=== PATIENT | female | born 1970 | race African-American/Black ===

== ENCOUNTER 2016-12-18 14:27 | Emergency (ER) | payer SELFPAY ==
[~2016-12-18] VITALS: Ht 177.8 cm; Wt 111.6 kg
[2016-12-18] MEDS ORDERED: NKM (14:43)
--- NOTE | 2016-12-18 15:05 | Emergency Room Report ---
History of Present Illness General Chief Complaint: Skin Rash/Abscess Source: Patient Present Illness HPI Pt is a 46 year old female who presents today with complaints of rash to the left axila that began 3 days ago. She states it has been itching and she has been using hydrocortisone cream for it. She denies any new lotions, soaps, or detergents. Denies new medications or pet contact. Denies SOB. Allergies: Coded Allergies: No Known Allergies (Unverified , 12/18/16) Patient History Last Menstrual Period: Current Now: No Reviewed Nursing Documentation: PMH: Agreed, PSxH: Agreed Nursing Documentation-PMH Past Medical History: No Stated History Review of Systems Skin: Reports: rash All Other Systems: negative except mentioned in HPI Physical Exam Vital Signs Date Time Temp Pulse Resp B/P (MAP) Pulse Ox O2 Delivery O2 Flow Rate FiO2 12/18/16 14:37 99.0 85 16 143/84 98 Room Air Sp02 EP Interpretation: reviewed, normal General Appearance: no apparent distress, alert, GCS 15, non-toxic Head: normocephalic, atraumatic Eyes: bilateral eye normal inspection, bilateral eye PERRL ENT: hearing grossly normal, normal pharynx, no angioedema, normal voice Neck: full range of motion, supple/symm/no masses Respiratory: chest non-tender, lungs clear, normal breath sounds, speaking full sentences Cardiovascular #1: regular rate, rhythm, no edema Cardiovascular #2: 2+ carotid (R), 2+ carotid (L), 2+ radial (R), 2+ radial (L) , 2+ dorsalis pedis (R), 2+ dorsalis pedis (L) Gastrointestinal: normal bowel sounds, non tender, soft, non-distended, no guarding, no rebound Rectal: deferred Genitourinary: normal inspection, no CVA tenderness Musculoskeletal: back normal, gait/station normal, normal range of motion, non- tender, calf tenderness Neurologic: alert, oriented x3, responsive, motor strength/tone normal, sensory intact, speech normal Psychiatric: judgement/insight normal, memory normal, mood/affect normal, no suicidal/homicidal ideation Reflexes: 3+ bicep (R), 3+ bicep (L), 3+ tricep (R), 3+ tricep (L), 3+ knee (R) , 3+ knee (L) Skin: normal color, warm/dry, well hydrated, other - maculopapular erruption on right axila and trunk Lymphatic: no adenopathy Medical Decision Making PA Attestation Supervising physician Dr. Samson ER Course Pt is found to have allergic urticaria and is given decadron in the ED. Pt is discharged to home with short course of prednisone and is instructed to take benadryl as needed for itching. Pt understands and is agreeable with plan. Last Vital Signs Date Time Temp Pulse Resp B/P (MAP) Pulse Ox O2 Delivery O2 Flow Rate FiO2 12/18/16 14:37 99.0 85 16 143/84 98 Room Air Disposition: HOME, SELF-CARE Scripts Prednisone* (PREDNISONE*) 20 Mg Tablet 40 MG ORAL DAILY for rash for 4 Days, #4 TAB 0 Refills Prov: Alexus Edwards 12/18/16 Alexus Edwards Dec 18, 2016 15:05
[2016-12-18] MEDS ORDERED: PREDNISONE20 MG ORAL (15:11)
[2016-12-18] MEDS ORDERED: Dexamethasone Elixir 0.25mg/2.5ml ORAL ONE ×2 (15:15→16:15)
[2016-12-18] MEDS ORDERED: Solu-MEDROL 125mg Inj IM ONE ×2 (16:15→16:30)
[2016-12-18 16:38] VITALS: BP_SYST 139; BP_SYST 143; BP_DIAS 84; BP_DIAS 87
== END 2016-12-18 16:39 | disposition home or self-care (01) ==
LOC: EMR 16:30
DX: L50.0 Allergic urticaria (principal)
CPT/HCPCS: 81025; 96372; 99284; J2930